=== PATIENT | female | born 1950 | race Caucasian/White ===

== ENCOUNTER → 2019-09-30 08:57 | Outpatient (CLI) | payer MEDICARE, SELFPAY ==
[2019-09-15 08:58] VITALS: BMI 26.6
[2019-09-30 09:52] VITALS: PULSE 80; PULSE 81; PULSE 89; PULSE 90; PULSE 93; PULSE 94; PULSE 95; PULSE 99; O2SAT 86; O2SAT 87; O2SAT 88; O2SAT 91; O2SAT 92; O2SAT 96
--- NOTE | 2019-09-30 09:57 | CPS ---
Patient arrived on own oxygen at 3lpm. Placed on room air prior to start of exercise test. Spo2 fell to 87% prior to beginning walk. Placed on 2LPM to start test. Oxygen subsequently increased throughout testing to maintain spo2 at/above 88%. (5LPM unavailable on our tanks so oxygen had to be increased from 4 to 6LPM at 4 minutes in to testing. ) Rest breaks taken for increased WOB, leg fatigue and occasional dizziness. Patient otherwise asymptomatic. D[facility] is [facility] in [place], [place]
--- NOTE | 2019-09-30 12:56 | WT_ITS ---
PSN 6 Minute Walk Test - 6 Minute Walk Test 6 Minute Walk Test: 6 Minute Walk Test PSN:6-Minute Walk Test Start: 09/30/19 09:51 Freq: Status: Active Protocol: [id number].6MINW Document 09/30/19 09:52 [facility] (Rec: 09/30/19 10:17 [facility] [id number]) 6 Minute Walk Test Date Performed 09/30/19 Time Performed 09:00 Height 5 ft 4 in Weight: 153 lb Weight in Pounds 153.[address]: Arturo Cohen Assistive device used: None Pre-test Oxygen Delivery Method Room Air Pulse Ox (%) 87 Pulse Rate (60-100 beats/min) 80 Dyspnea Samantha Scale (0-10) 1 1st minute Oxygen Flow Rate (L/min) (L/min) 2 Oxygen Delivery Method Nasal Cannula Pulse Ox (%) 86 Pulse Rate (60-100 beats/min) 89 Dyspnea Samantha Scale (0-10) 3 Number of Rests Taken 1 Reported Symptoms Cyanotic,Increased Work of Breathing,Dizziness 2nd minute Oxygen Flow Rate (L/min) (L/min) 3 Oxygen Delivery Method Nasal Cannula Pulse Ox (%) 87 Pulse Rate (60-100 beats/min) 94 Dyspnea Samantha Scale (0-10) 4 Number of Rests Taken 1 Reported Symptoms Increased Work of Breathing 3rd minute Oxygen Flow Rate (L/min) (L/min) 4 Oxygen Delivery Method Nasal Cannula Pulse Ox (%) 92 Pulse Rate (60-100 beats/min) 90 Dyspnea Samantha Scale (0-10) 4 Number of Rests Taken 0 Reported Symptoms Increased Work of Breathing 4th minute Oxygen Flow Rate (L/min) (L/min) 4 Oxygen Delivery Method Nasal Cannula Pulse Ox (%) 88 Pulse Rate (60-100 beats/min) 93 Dyspnea Samantha Scale (0-10) 5 Number of Rests Taken 1 Reported Symptoms Increased Work of Breathing 5th minute Oxygen Flow Rate (L/min) (L/min) 6 Oxygen Delivery Method Nasal Cannula Pulse Ox (%) 92 Pulse Rate (60-100 beats/min) 99 Dyspnea Samantha Scale (0-10) 3 Number of Rests Taken 0 Reported Symptoms Increased Work of Breathing 6th minute Oxygen Flow Rate (L/min) (L/min) 6 Oxygen Delivery Method Nasal Cannula Pulse Ox (%) 91 Pulse Rate (60-100 beats/min) 95 Dyspnea Samantha Scale (0-10) 3 Number of Rests Taken 0 Reported Symptoms Increased Work of Breathing Post-test Oxygen Flow Rate (L/min) (L/min) 3 Oxygen Delivery Method Nasal Cannula Pulse Ox (%) 96 Pulse Rate (60-100 beats/min) 81 Dyspnea Samantha Scale (0-10) 1 Full Laps Walked 7 Partial Lap, Number of Tiles Walked 24 Total Distance Walked (ft) 437 09/30/19 09:57 Cardiopulmonary Services by Nilda Hurtado Patient arrived on own oxygen at 3lpm. Placed on room air prior to start of exercise test. Spo2 fell to 87% prior to beginning walk. Placed on 2LPM to start test. Oxygen subsequently increased throughout testing to maintain spo2 at/above 88%. (5LPM unavailable on our tanks so oxygen had to be increased from 4 to 6LPM at 4 minutes in to testing. ) Rest breaks taken for increased WOB, leg fatigue and occasional dizziness. Patient otherwise asymptomatic. [facility] is [facility] in [place], [place] Initialized on 09/30/19 09:57 - END OF NOTE - Interpretation Interpretation: The patient ambulated 437 feet over the course of 6 minutes with rest breaks taken for shortness of breath. No assistive devices were utilized. Pretesting oxygen saturation on room air was noted to be 87%. 2 L of oxygen was applied prior to beginning the test. Throughout testing, the patient continued to desaturate, which required escalation in her supplemental oxygen flow rate to 6 L/min. - Recommendations Recommendations: 2 L/min of supplemental oxygen should be utilized at rest. 6 L/min of supplemental oxygen should be utilized with exertion.
== END ==
PROVIDERS: PCP Family Medicine; Referring Provider Internal Medicine Critical Care Medicine; Visit Provider Internal Medicine Critical Care Medicine
DX: J44.9 Chronic obstructive pulmonary disease, unspecified (principal)
CPT/HCPCS: 94618

== ENCOUNTER → 2019-10-06 09:51 | Outpatient (CLI) | payer MEDICARE, SELFPAY ==
[2019-09-15 08:58] VITALS: BMI 26.6
--- NOTE | 2019-10-06 15:05 | PFTCOMP ---
COMPLETE PULMONARY FUNCTION TEST INTERPRETATION Brief HPI: Patient is a 69 year old female, currently under the care of myself, who presents to [facility] for complete pulmonary function tests secondary to diagnosis of COPD. Respiratory therapist reports good effort and reproducible results. Interpretation: Forced expiration spirometry shows a very severe large airways obstructive ventilatory defect with an FEV1 of 25% predicted. There is a significant bronchodilator response in FVC by strict ATS criteria. Spirograms are of good quality and plateau slowly, indicating slowly emptying areas of the lungs. The respiratory flow volume loop shows decreased expiratory flow rates at all lung volumes consistent with airway obstruction. Lung volumes by body plethysmography show a decreased total lung capacity at 3.49 L, 72% predicted. FRC and RV are elevated out of proportion. Lung volume measurements are consistent with air-trapping. Diffusion capacity by carbon monoxide is decreased at 28% predicted. The airway resistance is elevated. No previous pulmonary function tests were available for review. Impression: Partially reversible very severe mixed ventilatory defect with a symmetric reduction diffusing capacity
== END ==
PROVIDERS: PCP Family Medicine; Referring Provider Internal Medicine Critical Care Medicine; Visit Provider Internal Medicine Critical Care Medicine
DX: J44.9 Chronic obstructive pulmonary disease, unspecified (principal)
CPT/HCPCS: 94060; 94726; 94729

== ENCOUNTER → 2019-12-19 15:16 | Outpatient (CLI) | payer MEDICARE, SELFPAY ==
[2019-12-19 13:13] VITALS: BMI 26.3
[2019-12-19 16:02] LABS: Microalbumin,Random Urine 14.4 mg/L (NO RANGE EST.); Microalbumin:Creatinine Ratio 45.9 mg/g CRE (<30 mg/g CRE)
[2019-12-19 16:15] LABS: ALB/GLOB Ratio 1.2 RATIO (0.9-2.4); AST(SGOT) 20 U/L (15-37); Alanine Aminotransfer ALT/SGPT 35 U/L (13-56); Albumin, Serum 4.1 g/dL (3.2-5.0); Alkaline Phosphatase 64 U/L (45-117); Anion Gap 6 (5-15); BUN 17 mg/dL (7-18); BUN/Creat Ratio 20.3 RATIO (10-20); Calcium,Total 9.5 mg/dL (8.5-10.1); Chloride 98 mmol/L (98-107); Cholesterol 189 mg/dL (200); Creatinine, Serum 0.84 mg/dL (0.55-1.02); EST Glomerular Filtration Rate 72 mL/min (>60); Est Glom Filt Rate - Afr Amer 87 mL/min (>60); Globulin 3.5 g/dL (2.2-4.2); Glucose 268 mg/dL (74-106); High Density Lipoprotein 43 mg/dL; Potassium 4.4 mmol/L (3.5-5.1); Protein, Total 7.6 g/dL (6.4-8.2); Sodium Level 138 mmol/L (136-145); Thyroid Stim Hormone (TSH) 3.33 uIU/mL (0.358-3.74); Triglycerides 270 mg/dL; Very Low Density Lipoprotein 54 mg/dL (5-40)
== END ==
PROVIDERS: PCP Family Medicine; Referring Provider Internal Medicine Endocrinology, Diabetes & Metabolism; Visit Provider Internal Medicine Endocrinology, Diabetes & Metabolism
DX: E11.9 Type 2 diabetes mellitus without complications (principal); E78.2 Mixed hyperlipidemia
CPT/HCPCS: 80053; 80061; 82043; 82570; 84443

== ENCOUNTER 2020-01-10 14:16 | Inpatient (IN) | payer MEDICARE, SELFPAY ==
[2020-01-10] VITALS (9 sets, daily range): BP systolic 117–160; BP diastolic 63–114; PULSE 85–96; RESP 19–24; TEMP 36.8–37.2; O2SAT 94–98; BMI 26.2; BMI 26.8
--- NOTE | 2020-01-10 15:06 | ED.DCSUM_ITS ---
History of Present Illness Chief Complaint: Shortness of Breath Informant: Patient Onset: Weeks Context: Sudden Onset Timing: Continuous Quality: Shortness of breath, wheezing, dyspnea on exertion Location: Not applicable Current Severity: Mild Maximum Severity: Moderate Worsened by: Minimal activity, walking Relieved by: Nothing Associated Symptoms: Cough that is productive green-colored sputum Narrative: Patient is an elderly woman with history of COPD who is oxygen dependent. She states if she is at rest requirement is 3 L by nasal cannula. If she walks requirement is 5 L by nasal cannula. She reports increased shortness of breath over the past week. Cough started approximate week ago and now is productive. She states a month ago she was able to walk from room to room. She states now she cannot walk room to room. She denies fever, chills night sweats. She denies headache, visual, ocular auditory symptoms. She denies rhinorrhea, congestion, postnasal drainage. She denies sore throat, dysphasia, dysphonia. She denies change in smell or taste. She denies chest pain. She denies nausea, vomiting or diarrhea. She denies dysuria, frequency, urgency or hematuria. She denies leg pain, swelling discoloration. She denies black or maroon stool. Prior similar symptoms: Yes Recent Illness/Hospitalization: No - Past Medical History (1) COPD, group C, by GOLD 2017 classification Status: Acute (2) Coronary atherosclerosis Status: Acute (3) H/O bronchitis Status: Acute (4) Insomnia, unspecified Status: Acute (5) Type 2 diabetes mellitus without complications Status: Acute (6) Benign hypertension Status: Chronic Past Medical History - Allergies and Home Meds Allergies/Adverse Reactions: Allergies niacin Allergy (Verified 01/10/20 14:16) hives, rash Primary Care Physician: Ron Garland MD [Primary Care Provider] - Surgical History: hysterectomy Lives: Alone Smoking Status: Former smoker Alcohol: None Drugs: None Review of Systems General: Denies: Chills, Fever, Sweats Eyes: Reports: Blurred Vision - bilaterally. Denies: Visual changes - bilaterally, Diplopia ENT: Denies: Bilateral ear pain, Rhinorrhea, Sore throat Cardiovascular: Denies: Chest pain, Palpitations Respiratory: Reports: Dyspnea, Cough, Sputum, Dyspnea on exertion. Denies: Orthopnea, Paroxysmal nocturnal dyspnea Gastrointestinal: Denies: Abdominal pain, Nausea, Vomiting, Diarrhea, Melena, Hematochezia Genitourinary: Denies: Dysuria, Hematuria, Frequency Musculoskeletal: Denies: Myalgias, Arthralgias, Back pain, Extremity Pain Skin: Denies: Rash, Wounds Neurological: Denies: Headache, Weakness, Numbness Endocrine: Reports: Polyuria. Denies: Polydipsia Hematologic: Denies: Easy bruising, Easy bleeding Physical Exam Vital Signs/Narrative: Vital Signs Temp Pulse Resp BP Pulse Ox 01/10/20 15:00 92 19 H 160/63 H 97 01/10/20 14:17 98.5 F 85 24 H 156/71 H 98 Inital Vital Signs reviewed: Yes General: Well nourished, Well developed, Obese, Acute Distress Head: Normocephalic, Atraumatic Eyes: Perrl, EOMI. Negative for: Pale conjunctiva, Scleral icterus ENT: No rhinorrhea, TM's clear. Negative for: Nasal congestion, Sinus tenderness Neck: Supple, Nontender, No lymphadenopathy, No JVD Cardiovascular: Regular rate, Regular rhythm, No murmurs, Normal S1, Normal S2 Respiratory: Chest nontender, Wheezing - High-pitched wheezing noted bilaterally with increased expiratory phase., Decreased Air Movement. Negative for: No distress, CTA bilaterally Abdomen: Soft, Nontender, Nondistended, Normal bowel sounds Rectal: Deferred Back: Nontender, Normal Inspection. Negative for: CVA tenderness Extremities: Nontender, Edema Skin: Normal color, No rash, No Trauma. Negative for: Cyanosis, Diaphoresis, Jaundice Neurological: Alert, Oriented x3, Cranial nerves II-XII grossly intact, Normal Strength, Normal Sensation. Negative for: Normal Gait - Was not tested because of respiratory distress. She states she has problems with balance, which is chronic. Psychological: Normal affect, Normal Mood Diagnostic/Tx/Re-eval Chest X-Ray - ED: 1 View, Read by ED Physician, Normal, Heart, Mediastinum, Bony Structures, No Acute Disease, Chronic Changes, - - Blebs noted and scarring noted. Impressions Chest X-Ray 01/10/20 15:25 IMPRESSION: Hyperinflation. Mild degree of increased markings at the lung bases suggestive of linear atelectasis and/or scarring. Electronically Signed: Travon Curry, at 15:44 EDT , Service support , Chest CTA 01/10/20 16:08 IMPRESSION: No evidence of pulmonary embolus. No evidence of thoracic aortic aneurysm or dissection. Mild emphysema. No pulmonary infiltrates or pleural effusions. Coronary artery disease. Enlarged, fatty liver. Electronically Signed: Chuy Madrid, at 16:56 EDT Tel , Service support , 01/10/20 15:25 Chest 1 View (Portable) [RAD] Stat 01/10/20 16:08 CTA Chest W/WO Contrast [CT] Stat Laboratory Results 01/10/20 01/10/20 01/10/20 15:15 15:15 15:15 WBC 7.3 RBC 4.18 L Hgb 12.3 Hct 41.1 MCV 98.3 MCH 29.4 MCHC 29.9 L RDW Std Deviation 44.0 H RDW Coeff of Netta 12.2 Plt Count 170 MPV 10.6 Immature Gran % (Auto) 0.300 Neut % (Auto) 54.5 Lymph % (Auto) 20.7 Howell % (Auto) 7.6 Eos % (Auto) 15.9 H Baso % (Auto) 1.0 Absolute Neuts (auto) 4.0 Absolute Lymphs (auto) 1.50 Nucleated RBC % 0 Sodium 142 Potassium 3.9 Chloride 98 Carbon Dioxide 38.0 H Anion Gap 6 BUN 17 Creatinine 0.88 Estim Creat Clear Calc 52.84 Est GFR (MDRD) Af Amer 83 Est GFR (MDRD) Non-Af 68 BUN/Creatinine Ratio 19.4 Glucose 152 H Lactic Acid 5.0 H* Calcium 9.3 Total Bilirubin 0.20 AST 23 ALT 30 Alkaline Phosphatase 57 Total Protein 7.3 Albumin 3.8 Globulin 3.5 Albumin/Globulin Ratio 1.1 Patient's lactic acidosis may be secondary diabetes mellitus and/or COPD and or combination of the two. Since patient is still using accessory muscles and wheezing hospitalist has been called for admission for COPD exacerbation and lactic acidosis. - EKG Initial EKG Interpretation: Sinus Rhythm - was performed at 1728. EKG reveals a sinus rhythm with a ventricular rate of 84. [place] interval is 136 ms. QRS duration 88 ms. QT duration 480 ms. [place] is normal. Decreased anterior force. EKG is otherwise unremarkable. - Medical Decision Making Differential diagnosis includes exacerbation of COPD/chronic bronchitis, viral infection including COVID, community-acquired pneumonia, with history of coronary disease one needs entertain possibility of congestive heart failure. Pulmonary embolus is in differential however she denies chest pain and has a productive cough. EKG, chest x-ray and appropriate blood work was obtained. Because patient has respiratory distress worsening hypoxia with productive cough COVID test was ordered. COVID precautions were initiated. I was informed at 1610 that lactate is 5. With a normal chest x-ray respiratory distress, hypoxia prior history of DVT patient has a high pretest probability for pulmonary embolus. Will obtain CTA to rule out PE. The differential still includes COVID impaction. CTA was reviewed by me at 1652. There is no evidence of pulmonary embolus or infiltrate. Awaiting formal read. Since there is no source of infection patient was not treated with 30 cc/kg bolus. Suspect patient's lactic acidosis is secondary to exacerbation of COPD. In spite of multiple aerosol treatments, Solu-Medrol she remains tachypneic with use of accessory muscles. Once CTA has been read by radiologist will contact hospitalist for admission. - Critical Care Time Critical care time (excluding procedures): 30-74 minutes - Total time 31 minutes: To obtain detailed history, speak with referring practitioner, performing history, documentation of H&P, interpretation of laboratory studies and imaging, repeat evaluation after treatment. ED Disposition - Plan for ED Patient: Disposition: Acute Care Hospital [facility] Diagnosis: Acute exacerbation of COPD with asthma, Lactic acidosis, Acute and chronic respiratory failure with hypoxia, History of coronary artery disease Referrals: Ron Garland MD [Primary Care Provider] -
--- NOTE | 2020-01-10 15:25 | RAD_ITS ---
STUDY: X-RAY CHEST REASON FOR EXAM: Female, 69 years old. Shortness of breath x 1 week, Hx COPD TECHNIQUE: Single AP portable view of the chest. COMPARISON: None. FINDINGS: EKG electrodes are seen. Minimal increased markings at the lung bases suggestive of mild degree of the atelectasis and/or linear scarring. Hyperinflation. There is no demonstrated pleural abnormality. Normal size heart. Normal mediastinum and gretchen. Normal visualized pulmonary arteries. Normal visualized aortic arch and descending thoracic aorta. Normal visualized thoracic spine. Normal visualized ribs, clavicles, and shoulders. There is no demonstrated abnormality of the visualized soft tissue structures of the upper abdomen. RAD/Chest 1 View (Portable) IMPRESSION: Hyperinflation. Mild degree of increased markings at the lung bases suggestive of linear atelectasis and/or scarring. Electronically Signed: Travon Curry, at 15:44 EDT , Service support ,
[2020-01-10 15:34] LABS: Basophil# 0.07 X10^3/uL; Eosinophil# 1.15 X10^3/uL; Eosinophils% 15.9 % (0-5); Hematocrit 41.1 % (37-47); Hemoglobin 12.3 g/dL (12.0-15.0); Lymphocyte % 20.7 % (19-41); Mean Corp Hgb Conc 29.9 g/dL (32-36); Mean Corpuscular Hgb 29.4 pg (27.0-32.0); Mean Corpuscular Volume 98.3 fL (81-99); Mean Platelet Vol. 10.6 fl (6.2-12.0); Monocyte# 0.55 X10^3/uL; Monocyte% 7.6 % (0-10); NRBC Flagged by Analyzer 0 % (0-5); Neutrophil # 3.96 X10^3/uL (2.7-7.7); Neutrophil % 54.5 % (47-70); Platelet Count 170 K/mm3 (150-450); RBC Distribution Width CV 12.2 % (11.6-14.6); Red Blood Count 4.18 M/mm3 (4.2-5.4); White Blood Count 7.3 K/mm3 (4.4-11.0)
[2020-01-10 15:59] LABS: ALB/GLOB Ratio 1.1 RATIO (0.9-2.4); AST(SGOT) 23 U/L (15-37); Alanine Aminotransfer ALT/SGPT 30 U/L (13-56); Albumin, Serum 3.8 g/dL (3.2-5.0); Alkaline Phosphatase 57 U/L (45-117); Anion Gap 6 (5-15); BUN 17 mg/dL (7-18); BUN/Creat Ratio 19.4 RATIO (10-20); Calcium,Total 9.3 mg/dL (8.5-10.1); Chloride 98 mmol/L (98-107); Creatinine, Serum 0.88 mg/dL (0.55-1.02); EST Glomerular Filtration Rate 68 mL/min (>60); Est Glom Filt Rate - Afr Amer 83 mL/min (>60); Estimated Creatinine Clearance 52.84 ml/min; Globulin 3.5 g/dL (2.2-4.2); Glucose 152 mg/dL (74-106); Potassium 3.9 mmol/L (3.5-5.1); Protein, Total 7.3 g/dL (6.4-8.2); Sodium Level 142 mmol/L (136-145)
--- NOTE | 2020-01-10 16:08 | CT_ITS ---
STUDY: CTA CHEST REASON FOR EXAM: Female, 69 years old. Increased SOB x 1 week, hypoxia with movement, home O2, COPD, coronary stents, hypertension, diabetes. RADIATION DOSAGE (If Supplied By Facility): CTDIvol = ( 10.95 ) mGy, DLP = ( 445.68 ) mGycm TECHNIQUE: The examination was performed with the intravenous administration of 100mL Isovue 300. Post-processing of the angiographic images was performed, with multiplanar reformation and 3D reconstruction. Individualized dose optimization techniques were used for this CT. COMPARISON: None. FINDINGS: There is no evidence of pulmonary embolus. There is no evidence of thoracic aortic aneurysm or dissection. There are mild emphysematous changes noted in the lungs. There are no pulmonary infiltrates or pleural effusions. There is no pneumothorax. The heart is normal in size. There are coronary artery calcifications noted. There is no thoracic lymphadenopathy. Images through the upper abdomen demonstrate an enlarged, fatty liver. There are no destructive osseous lesions. CT/CTA Chest W/WO Contrast IMPRESSION: No evidence of pulmonary embolus. No evidence of thoracic aortic aneurysm or dissection. Mild emphysema. No pulmonary infiltrates or pleural effusions. Coronary artery disease. Enlarged, fatty liver. Electronically Signed: Chuy Madrid, at 16:56 EDT Tel , Service support ,
--- NOTE | 2020-01-10 16:36 | ED.RN ---
dr cardoza consulted on sepsis alert. states no identifiable source at this time. feels it is not an infectious process. no further orders at this time. bianca jack rn [id number]
--- NOTE | 2020-01-10 17:18 | EKG12_ITS ---
Test Reason : Blood Pressure : / mmHG Vent. Rate : 084 BPM Atrial Rate : 084 BPM P-R Int : 136 ms QRS Dur : 088 ms QT Int : 480 ms P-R-T Axes : 078 095 058 degrees QTc Int : 567 ms Normal sinus rhythm Low voltage QRS Septal infarct , age undetermined Abnormal ECG Confirmed by EVERETTE ARRIAZA ([id number]), school photograph editor GUI VALDES ([id number]) on 01/12/2020 2:22:23 PM Referred By: ANTONI Confirmed By:EVERETTE ARRIAZA
--- NOTE | 2020-01-10 18:22 | HP.PCM_ITS ---
History of Present Illness Date of Admission: 01/10/20 Chief Complaint: SOB The patient is a 69 year old F with a PMH as below who presents with shortness of breath that started about a week ago. She does have COPD and she was at the managed care provider office today for an acute visit and her oxygen had to be titrated up from her baseline of 3 L to 5 L while at rest. She was transferred to the ER for evaluation and to decide on where to admit her. CTA of the chest was unremarkable, preliminary respiratory panel is also unremarkable and a COVID test is pending though she has no known exposure at this time. She states that she has not really increased her oxygen even with ambulation because she does not ambulate all that much. She denies any chest pain, but states that she has had lightheadedness. She also denies any fevers, chills or alterations in her sense of smell and taste. Chest x-ray demonstrates hyperinflation and signs of COPD. Past Medical History Past Medical History (Chronic Problems): Chronic Problems (Last Reviewed 01/10/20 @ 13:29 by Suzi Garber NP-Francis) Acute exacerbation of COPD with asthma (Chronic) Acute and chronic respiratory failure with hypoxia (Chronic) Diabetes (Chronic) Microalbuminuria due to type 2 diabetes mellitus (Chronic) Chronic respiratory failure with hypoxia (Chronic) COPD (chronic obstructive pulmonary disease) (Chronic) Benign hypertension (Chronic) Hyperlipidemia, unspecified (Chronic) Medical History: Medical History (Last Reviewed 01/10/20 @ 13:29 by Suzi Garebr NP-C) Pneumonia (Acute) J18.9 COPD (chronic obstructive pulmonary disease) (Chronic) J44.9 Bronchitis (Acute) J40 Allergies niacin Allergy (Verified 01/10/20 14:16) hives, rash Home Medications: Ambulatory Orders Medication Instructions Recorded aspirin 325 mg tablet,delayed 325 mg PO DAILY 09/14/19 release atorvastatin 20 mg tablet 20 mg PO QHS 09/14/19 estradiol 0.5 mg tablet 0.5 mg PO DAILY 09/14/19 furosemide 40 mg tablet 40 mg PO DAILY 09/14/19 ipratropium 0.5 mg-albuterol 3 mg 3 ml INHALATION Q6H PRN 09/14/19 (2.5 mg base)/3 mL nebulization soln melatonin 10 mg tablet,extended 10 mg PO QHS tab 09/14/19 release metoprolol succinate 50 mg 50 mg PO DAILY 09/14/19 tablet,extended release 24 hr pioglitazone 15 mg tablet 15 mg PO DAILY 09/14/19 Budesonide [Pulmicort] 0.25 mg IH BID 01/10/20 Glipizide/Metformin HCl 2 tab PO BID 01/10/20 [Glipizide-Metformin 2.5-500 mg] Insulin Glargine [Lantus SoloStar 30 unit SQ DAILY 01/10/20 Pen] Surgical History: Surgical History (Last Reviewed 01/10/20 @ 13:29 by Suzi Garber NP-C) History of cataract surgery (Resolved) Z98.49 S/P complete hysterectomy (Resolved) Z90.710 H/O removal of cyst (Resolved) Z98.890 History of colonoscopy (Resolved) Z98.890 Surgical History: cataract, hysterectomy Lives: Alone Smoking Status: Former smoker Tobacco Use: Cigarettes Alcohol: None Drugs: None - *Family History Maternal Family History: Family History (Last Reviewed 01/10/20 @ 13:29 by Suzi Garber NP-C) Father Heart disease Mother Cancer Sister CVA (cerebral vascular accident) Cancer Review of Systems Constitutional: Denies: Chills, Fever, Weight Change HEENT: Denies: Head Aches, Sinus Congestion, Sinus Drainage Cardiovascular: Reports: Light Headedness. Denies: Chest Pain, Chest Pressure, Palpitations Respiratory: Reports: Cough, Shortness of Breath, Shortness of breath upon exertion. Denies: Shortness of breath at rest, Sputum production Gastrointestinal: Denies: Abdominal Pain, Nausea, Vomiting Genitourinary: Denies: Dysuria Musculoskeletal: Denies: Joint Pain, Joint Tenderness Skin: Denies: Rash, Wounds Neurological: Denies: Numbness, Tingling, Focal weakness Psychiatric: Denies: Anxiety, Depression Hematologic/ Lymphatic: Denies: Easy Bruising, Easy Bleeding VTE Information - Inpt Only VTE Present on Admission: No Patient Problems: Active and Suspected Problems (Last Reviewed 01/10/20 @ 13:29 by Suzi Garber NP-C) Lactic acidosis (Acute) History of coronary artery disease (Acute) - Physical Exam Vitals/I&O's: Vital Signs Temp Pulse Resp BP Pulse Ox 98.2 F 90 23 H 117/65 95 01/10/20 17:56 01/10/20 17:56 01/10/20 17:56 01/10/20 17:56 01/10/20 17:56 Oxygen Flow Rate (L/min) 3 Oxygen Delivery Method Room Air Weight: 153 lb Body Mass Index (BMI) 26.2 General: Alert, Oriented x3, Cooperative, No apparent distress HEENT: Atraumatic, PERRLA, EOMI, Normocephalic Oral: Moist Mucosa Neck: Supple, No JVD Lungs: No rhonchi, No rales, Diminished, Wheezes - Mild, - - Very poor air movement Cardiovascular: Regular rate, Regular Rhythm, Normal S1, Normal S2, No murmurs Abdomen: Soft, Non Tender, Non-Distended, No Hepato-splenomegaly Extremities: No edema, Capillary Refill Less than 3 Seconds Skin: No rashes, No breakdown Neurological: Neuro grossly intact, Sensory exam intact to light touch and pain Psych/Mental Status: Normal Affect, Appropriate Microbiology Past 72 Hours 01/10/20 15:18 Mucosa - Nose Respiratory Panel (PCR) - Preliminary Laboratory Results 01/10/20 15:15: WBC 7.3, RBC 4.18 L, Hgb 12.3, Hct 41.1, MCV 98.3, MCH 29.4, MCHC 29.9 L, RDW Std Deviation 44.0 H, RDW Coeff of Netta 12.2, Plt Count 170, MPV 10.6, Immature Gran % (Auto) 0.300, Neut % (Auto) 54.5, Lymph % (Auto) 20.7, [place] % (Auto) 7.6, Eos % (Auto) 15.9 H, Baso % (Auto) 1.0, Absolute Neuts (auto) 4.0, Absolute Lymphs (auto) 1.50, Nucleated RBC % 0 01/10/20 15:15: Sodium 142, Potassium 3.9, Chloride 98, Carbon Dioxide 38.0 H, Anion Gap 6, BUN 17, Creatinine 0.88, Estim Creat Clear Calc 52.84, Est GFR (MDRD) Af Amer 83, Est GFR (MDRD) Non-Af 68, BUN/Creatinine Ratio 19.4, Glucose 152 H, Calcium 9.3, Total Bilirubin 0.20, AST 23, ALT 30, Alkaline Phosphatase 57, Total Protein 7.3, Albumin 3.8, Globulin 3.5, Albumin/Globulin Ratio 1.1 01/10/20 15:15: Lactic Acid 5.0 H* Assessment/Plan All Active Problems (Last Reviewed 01/10/20 @ 13:29 by Suzi Garber, PHIL-C) Lactic acidosis (Acute) History of coronary artery disease (Acute) History of cataract surgery (Resolved) S/P complete hysterectomy (Resolved) H/O removal of cyst (Resolved) Pneumonia (Acute) Bronchitis (Acute) History of colonoscopy (Resolved) H/O urinary tract infection (Acute) Olecranon bursitis of right elbow (Acute) Knee pain (Acute) H/O: pneumonia (Acute) H/O bronchitis (Acute) H/O estrogen therapy (Acute) Rotator cuff impingement syndrome (Acute) COPD, group C, by GOLD 2017 classification (Acute) Coronary atherosclerosis (Acute) Insomnia, unspecified (Acute) Type 2 diabetes mellitus without complications (Acute) 1. Acute COPD exacerbation with acute respiratory insufficiency/lactic acidosis -She is struggling to breathe and her managed care provider office today and had to have her oxygen increased to 5 L -She is received breathing treatments in the ER I believe and at the office -we will continue with duo nebs, as well as Solu-Medrol. We will continue with her budesonide as well -There is no sign of infection to consider there her septic, will repeat lactate but will hold both her Lasix and any IV fluids at this time, her lactic acidosis is likely related to any hypoxia she has had over the last week 2. HTN/HLD -Pressures are stable currently -Continue with her Lipitor, and metoprolol -Can restart her Lasix tomorrow if her lactic acidosis improves 3. DM 2 -She follows with endocrinology as an outpatient -We will hold her glipizide, Actos and metformin but continue with her Lantus -Also place her on sliding scale insulin given the fact that she will be on steroids DVT: Lovenox Inpatient E&M: [id number] Init Hosp L2
[2020-01-10 19:30] LABS: Reflex Lactate? Y
[2020-01-10 20:53] LABS: Lactic Acid 2.7 mmol/L (0.4-1.9)
[2020-01-10] MEDS: Atorvastatin Calcium 20 MG Tablet PO (21:05)
[2020-01-10] MEDS: Estradiol 0.5 MG Tablet PO (21:05)
[2020-01-10 21:11] LABS: Bedside Glucose 230 mg/dL (70-110)
[2020-01-10] MEDS: Insulin Lispro 100 UNIT/ML INSULN.PEN SC (21:11)
[2020-01-10] MEDS: 0.9% Saline Lock 10 ML Syringe IV (21:11)
[2020-01-10] MEDS: Ipratropium/Albuterol Sulfate 3 ML AMPUL.NEB INHALATION (23:55)
[2020-01-11] VITALS (15 sets, daily range): BP systolic 125–155; BP diastolic 57–79; PULSE 76–99; RESP 16–20; TEMP 36.1–37; O2SAT 94–98
[2020-01-11] MEDS: 0.9% Saline Lock 10 ML Syringe IV ×2 (05:22→15:12)
[2020-01-11 06:30] LABS: Absolute Neutrophil Count 4.7 X10^3/uL (2.0-7.7); Basophil# 0.04 X10^3/uL; Basophil% 0.7 % (0-1); Eosinophil# 0.04 X10^3/uL; Eosinophils% 0.7 % (0-5); Hematocrit 41.8 % (37-47); Hemoglobin 12.5 g/dL (12.0-15.0); Lymphocyte % 9.2 % (19-41); Mean Corp Hgb Conc 29.9 g/dL (32-36); Mean Corpuscular Hgb 29.3 pg (27.0-32.0); Mean Corpuscular Volume 98.1 fL (81-99); Mean Platelet Vol. 10.2 fl (6.2-12.0); Monocyte# 0.15 X10^3/uL; Monocyte% 2.8 % (0-10); NRBC Flagged by Analyzer 0 % (0-5); Neutrophil # 4.69 X10^3/uL (2.7-7.7); POSITIVE DIFFERENTIAL YES; Platelet Count 161 K/mm3 (150-450); RBC Distribution Width CV 12.2 % (11.6-14.6); RBC Distribution Width SD 43.8 fl (35.1-43.9); Red Blood Count 4.26 M/mm3 (4.2-5.4); White Blood Count 5.5 K/mm3 (4.4-11.0)
[2020-01-11] MEDS: Insulin Lispro 100 UNIT/ML INSULN.PEN SC ×4 (06:41→21:56)
[2020-01-11 06:42] LABS: Differential Indicated SCAN CRITERIA MET
[2020-01-11 06:50] LABS: Bedside Glucose 246 mg/dL (70-110)
[2020-01-11] MEDS: Ipratropium/Albuterol Sulfate 3 ML AMPUL.NEB INHALATION ×4 (06:57→18:50)
[2020-01-11 06:59] LABS: Anion Gap 2 (5-15); BUN 17 mg/dL (7-18); BUN/Creat Ratio 24.4 RATIO (10-20); Calcium,Total 9.1 mg/dL (8.5-10.1); Chloride 99 mmol/L (98-107); EST Glomerular Filtration Rate 89 mL/min (>60); Est Glom Filt Rate - Afr Amer 107 mL/min (>60); Glucose 275 mg/dL (74-106); Potassium 4.6 mmol/L (3.5-5.1); Sodium Level 141 mmol/L (136-145)
[2020-01-11 07:08] LABS: Anisocytosis 1+; Hypochromasia 1+; Platelet Estimate ADEQUATE (ADEQ)
[2020-01-11] MEDS: Aspirin E.C. 325 MG Tablet PO (08:30)
[2020-01-11] MEDS: Enoxaparin 40 MG/0.4 ML Syringe SC (09:42)
--- NOTE | 2020-01-11 10:30 | CASEMGMT ---
MARIE GROVES Face to Face with patient for initial transition planning/care coordination assessment. RN CM introduced self and role at [facility]. Patient lying in bed, alert and oriented. Patient willing to participate in assessment and is able to answer all questions appropriately. Care providers, pharmacy, and demographics verified. Patient wishes to discharge home, denies need for home health at this time. Patient states she has no further needs or concerns at this time. CM to follow for discharge planning needs that may arise. PCP: Ron Garland Specialists: , Endocrinology; Noel, pulmonology Preferred Pharmacy: [facility] Insurance: [employer] PPO Prescription Benefit: yes Living Will/HPOA: none LNOK: , daughter Living Arrangements: Patient lives with in 3 story home with bed and bath on first floor with 2 steps to enter the home. Patient states she is independent with toileting and dressing, daughter sometimes helps with bathing. Transportation: or daughter DME/HHC: Patient states she has cane, shower chair, grab bars, nebulizer, and oxygen 3-5 lpm through [employer] at home with portable tanks and concentrator. Monitor for need for walker at home. Patient denies previous HHC. Disposition Plan: Patient to discharge home with family support and follow-up plans in place. Margo WARNER, RN, CM
[2020-01-11 11:15] LABS: Bedside Glucose 271 mg/dL (70-110)
--- NOTE | 2020-01-11 11:27 | PCM.PN.HOSP ---
Patient Problems: Active and Suspected Problems (Last Reviewed 01/10/20 @ 13:29 by CLIFFORD Velazquez) Lactic acidosis (Acute) History of coronary artery disease (Acute) Subjective: She says that she is feeling better since she came in, breathing little bit easier. No issues overnight Vitals/I&O's: Vital Signs Temp Pulse Resp BP Pulse Ox 98.2 F 99 16 135/76 H 96 01/11/20 11:05 01/11/20 11:05 01/11/20 11:05 01/11/20 11:05 01/11/20 11:05 Oxygen Flow Rate (L/min) 3 Oxygen Delivery Method Nasal Cannula Weight: 156 lb 4.924 oz Body Mass Index (BMI) 26.8 Intake and Output for Last 24 Hours 01/09/20 01/10/20 01/11/20 23:59 23:59 23:59 Intake Total 100 / 100 150 / 150 Output Total 300 / 300 225 / 225 Balance -200 / -200 -75 / -75 General: Alert, Oriented x3, Cooperative, No apparent distress HEENT: Atraumatic, PERRLA, EOMI, Normocephalic Oral: Moist Mucosa Neck: Supple, No JVD Lungs: No rhonchi, No rales, Diminished, Wheezes - Mild, - - Very poor air movement Cardiovascular: Regular rate, Regular Rhythm, Normal S1, Normal S2, No murmurs Abdomen: Soft, Non Tender, Non-Distended, No Hepato-splenomegaly Extremities: No edema, Capillary Refill Less than 3 Seconds Skin: No rashes, No breakdown Neurological: Neuro grossly intact, Sensory exam intact to light touch and pain Psych/Mental Status: Normal Affect, Appropriate Microbiology Past 72 Hours 01/10/20 15:18 Mucosa - Nose Respiratory Panel (PCR) - Final 01/10/20 15:13 Mucosa - Nasopharyngeal Coronavirus COVID-19 PCR - Final Laboratory Results 01/10/20 15:15: WBC 7.3, RBC 4.18 L, Hgb 12.3, Hct 41.1, MCV 98.3, MCH 29.4, MCHC 29.9 L, RDW Std Deviation 44.0 H, RDW Coeff of Netta 12.2, Plt Count 170, MPV 10.6, Immature Gran % (Auto) 0.300, Neut % (Auto) 54.5, Lymph % (Auto) 20.7, Victoria % (Auto) 7.6, Eos % (Auto) 15.9 H, Baso % (Auto) 1.0, Absolute Neuts (auto) 4.0, Absolute Lymphs (auto) 1.50, Nucleated RBC % 0 01/10/20 15:15: Sodium 142, Potassium 3.9, Chloride 98, Carbon Dioxide 38.0 H, Anion Gap 6, BUN 17, Creatinine 0.88, Estim Creat Clear Calc 52.84, Est GFR (MDRD) Af Amer 83, Est GFR (MDRD) Non-Af 68, BUN/Creatinine Ratio 19.4, Glucose 152 H, Calcium 9.3, Total Bilirubin 0.20, AST 23, ALT 30, Alkaline Phosphatase 57, Total Protein 7.3, Albumin 3.8, Globulin 3.5, Albumin/Globulin Ratio 1.1 01/10/20 15:15: Lactic Acid 5.0 H* 01/10/20 19:58: Lactic Acid 2.7 H* 01/10/20 21:04: POC Glucose 230 H 01/11/20 06:20: WBC 5.5, RBC 4.26, Hgb 12.5, Hct 41.8, MCV 98.1, MCH 29.3, MCHC 29.9 L, RDW Std Deviation 43.8, RDW Coeff of Netta 12.2, Plt Count 161, MPV 10.2, Immature Gran % (Auto) 0.600, Neut % (Auto) 86.0 H, Lymph % (Auto) 9.2 L, Victoria % (Auto) 2.8, Eos % (Auto) 0.7, Baso % (Auto) 0.7, Absolute Neuts (auto) 4.7, Absolute Lymphs (auto) 0.50 L, Nucleated RBC % 0, Differential Comment COMMENT, Platelet Estimate ADEQUATE, Hypochromasia 1+, Anisocytosis 1+ 01/11/20 06:20: Sodium 141, Potassium 4.6, Chloride 99, Carbon Dioxide 40.0 H, Anion Gap 2 L, BUN 17, Creatinine 0.70, Estim Creat Clear Calc 46.50, Est GFR (MDRD) Af Amer 107, Est GFR (MDRD) Non-Af 89, BUN/Creatinine Ratio 24.4 H, Glucose 275 H, Calcium 9.1 01/11/20 06:40: POC Glucose 246 H 01/11/20 10:55: POC Glucose 271 H Current Medications Acetaminophen (Tylenol) 650 mg PO Q6H PRN PRN PRN Reason: Pain Score 1-10/Temp > 100.7 F Albuterol/Ipratropium (Duoneb) 3 ml INHALATION Q4HWA.RT [facility] Last Admin: 01/11/20 11:15 Dose: 3 ml Documented by: Aspirin (Ecotrin) 325 mg PO DAILY@0800 [facility] Last Admin: 01/11/20 08:30 Dose: 325 mg Documented by: Atorvastatin Calcium (Lipitor) 20 mg PO QHS [facility] Last Admin: 01/10/20 21:05 Dose: 20 mg Documented by: Dextrose (D50w Syringe) 0 gm IV X1 PRN; Protocol PRN Reason: Hypoglycemia Enoxaparin Sodium (Lovenox) 40 mg SC DAILY [facility] Last Admin: 01/11/20 09:42 Dose: 40 mg Documented by: Estradiol (Estradiol) 0.5 mg PO QHS [facility] [place] Last Admin: 01/10/20 21:05 Dose: 0.5 mg Documented by: Glucagon () 1 mg IM .X1 PRN PRN Reason: Hypoglycemia Sodium Chloride () 250 mls @ 15 mls/hr IV .[id number] PRN PRN Reason: Saline Flush Sodium Chloride () 250 mls @ 15 mls/hr IV .[id number] PRN PRN Reason: Additional IVPB Infusion Insulin Glargine (Lantus (Bkc)) 30 units SC DAILY [facility] Last Admin: 01/11/20 10:57 Dose: 30 u Documented by: Insulin Human Lispro (Humalog Kwikpen (Bkc)) 0 unit SC ACHS [facility] [place]; Protocol Last Admin: 01/11/20 10:56 Dose: 8 u Documented by: Melatonin (Melatonin) 3 mg PO QHS PRN PRN PRN Reason: INSOMNIA Methylprednisolone (Solu-Medrol) 40 mg IV Q8 [facility] [place] Last Admin: 01/11/20 05:23 Dose: 40 mg Documented by: Metoprolol Succinate (Toprol Xl (Beta Neo)) 50 mg PO 1730 [facility] Ondansetron HCl (Zofran) 4 mg IV Q8H PRN PRN PRN Reason: NAUSEA/VOMITING Sodium Chloride () 10 - 40 ml IV UD PRN PRN Reason: SALINE FLUSH Last Admin: 01/11/20 05:22 Dose: 10 ml Documented by: STROKE Vital Signs/Narrative: Vital Signs Temp Pulse Resp BP Pulse Ox 01/11/20 11:05 98.2 F 99 16 135/76 H 96 01/11/20 07:40 95 Medical Necessity - Tobacco Use Smoking Status: Former smoker Tobacco Use: Cigarettes Assessment/Plan All Active Problems (Last Reviewed 01/10/20 @ 13:29 by Suzi Garber, PHIL-C) Lactic acidosis (Acute) History of coronary artery disease (Acute) History of cataract surgery (Resolved) S/P complete hysterectomy (Resolved) H/O removal of cyst (Resolved) Pneumonia (Acute) Bronchitis (Acute) History of colonoscopy (Resolved) H/O urinary tract infection (Acute) Olecranon bursitis of right elbow (Acute) Knee pain (Acute) H/O: pneumonia (Acute) H/O bronchitis (Acute) H/O estrogen therapy (Acute) Rotator cuff impingement syndrome (Acute) COPD, group C, by GOLD 2017 classification (Acute) Coronary atherosclerosis (Acute) Insomnia, unspecified (Acute) Type 2 diabetes mellitus without complications (Acute) 1. 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 We will continue with her budesonide as well -There is no sign of infection to consider there her septic, repeat lactate is 2.7 down from 5, but will hold both her Lasix and any IV fluids at this time, her lactic acidosis is likely related to any hypoxia she has had over the last week 2. HTN/HLD -Pressures are stable currently -Continue with her Lipitor, and metoprolol -Can restart her Lasix tomorrow if her lactic acidosis improves 3. DM 2 -She follows with endocrinology as an outpatient -We will hold her glipizide, Actos and metformin but continue with her Lantus -Also place her on sliding scale insulin given the fact that she will be on steroids DVT: Lovenox Inpatient E&M: 64822 Subs Hosp L2
--- NOTE | 2020-01-11 15:17 | CASEMGMT ---
Call to [employer] and per rep, pt's order is for 2.5liters continuous home oxygen. Per rep, pt has as portable concentrator as well as the home concentrator. SStlizy SALAZAR CM
--- NOTE | 2020-01-11 15:37 | CASEMGMT ---
Social Work Palliative medicine screen completed with score of 5. SW met with pt and explained the palliative medicine program. Pt receptive to verbal and written information on the program but is not interested in a referral at this time. Pt made aware that she can contact palliative with questions once she returns home. LOPEZ Hua
[2020-01-11 17:01] LABS: Bedside Glucose 338 mg/dL (70-110)
[2020-01-11] MEDS: Metoprolol(XL)Succ 50 MG Tablet PO (17:19)
[2020-01-11] MEDS: Estradiol 0.5 MG Tablet PO (21:55)
[2020-01-11] MEDS: Atorvastatin Calcium 20 MG Tablet PO (21:56)
[2020-01-11 22:16] LABS: Bedside Glucose 308 mg/dL (70-110)
[2020-01-12] VITALS (16 sets, daily range): BP systolic 109–138; BP diastolic 44–66; PULSE 62–86; RESP 16–18; TEMP 36.3–37; O2SAT 94–99
[2020-01-12] MEDS: Ipratropium/Albuterol Sulfate 3 ML AMPUL.NEB INHALATION ×5 (01:45→19:01)
[2020-01-12] MEDS: 0.9% Saline Lock 10 ML Syringe IV ×2 (06:29→14:09)
[2020-01-12] MEDS: Insulin Lispro 100 UNIT/ML INSULN.PEN SC ×4 (06:32→21:14)
[2020-01-12 06:41] LABS: Bedside Glucose 270 mg/dL (70-110)
[2020-01-12 07:06] LABS: Anion Gap 3 (5-15); BUN 26 mg/dL (7-18); BUN/Creat Ratio 31.3 RATIO (10-20); Calcium,Total 9.2 mg/dL (8.5-10.1); Chloride 100 mmol/L (98-107); Creatinine, Serum 0.83 mg/dL (0.55-1.02); EST Glomerular Filtration Rate 73 mL/min (>60); Est Glom Filt Rate - Afr Amer 88 mL/min (>60); Estimated Creatinine Clearance 56.02 ml/min; Glucose 295 mg/dL (74-106); Potassium 4.8 mmol/L (3.5-5.1); Sodium Level 140 mmol/L (136-145)
[2020-01-12] MEDS: Aspirin E.C. 325 MG Tablet PO (09:25)
[2020-01-12] MEDS: Enoxaparin 40 MG/0.4 ML Syringe SC (09:25)
--- NOTE | 2020-01-12 10:01 | PCM.PN.HOSP ---
Patient Problems: Active and Suspected Problems (Last Reviewed 01/10/20 @ 13:29 by Suzi Garber NP-Francis) Lactic acidosis (Acute) History of coronary artery disease (Acute) Subjective: Breathing better and doing better. She says that she would feel more comfortable if he stays in the night, she still is short of breath when she walks to the bathroom. I asked if she has been turning up her oxygen and she said no I reminded her that she is supposed to increase her oxygen with activity. Vitals/I&O's: Vital Signs Temp Pulse Resp BP Pulse Ox 97.4 F L 62 18 131/66 H 95 01/12/20 08:31 01/12/20 08:31 01/12/20 08:31 01/12/20 08:31 01/12/20 08:31 Oxygen Flow Rate (L/min) 2 Oxygen Delivery Method Nasal Cannula Weight: 156 lb 4.924 oz Body Mass Index (BMI) 26.8 Intake and Output for Last 24 Hours 01/10/20 01/11/20 01/12/20 23:59 23:59 23:59 Intake Total 100 / 100 1115 / 1115 125 / 125 Output Total 300 / 300 225 / 225 Balance -200 / -200 890 / 890 125 / 125 General: Alert, Oriented x3, Cooperative, No apparent distress HEENT: Atraumatic, PERRLA, EOMI, Normocephalic Oral: Moist Mucosa Neck: Supple, No JVD Lungs: No rhonchi, No rales, Diminished, Wheezes - Mild, - - Very poor air movement Cardiovascular: Regular rate, Regular Rhythm, Normal S1, Normal S2, No murmurs Abdomen: Soft, Non Tender, Non-Distended, No Hepato-splenomegaly Extremities: No edema, Capillary Refill Less than 3 Seconds Skin: No rashes, No breakdown Neurological: Neuro grossly intact, Sensory exam intact to light touch and pain Psych/Mental Status: Normal Affect, Appropriate Microbiology Past 72 Hours 01/10/20 15:18 Mucosa - Nose Respiratory Panel (PCR) - Final 01/10/20 15:13 Mucosa - Nasopharyngeal Coronavirus COVID-19 PCR - Final Laboratory Results 01/11/20 10:55: POC Glucose 271 H 01/11/20 16:54: POC Glucose 338 H 01/11/20 21:54: POC Glucose 308 H 01/12/20 06:16: Sodium 140, Potassium 4.8, Chloride 100, Carbon Dioxide 37.0 H, Anion Gap 3 L, BUN 26 H, Creatinine 0.83, Estim Creat Clear Calc 56.02, Est GFR (MDRD) Af Amer 88, Est GFR (MDRD) Non-Af 73, BUN/Creatinine Ratio 31.3 H, Glucose 295 H, Calcium 9.2 01/12/20 06:32: POC Glucose 270 H Current Medications Acetaminophen (Tylenol) 650 mg PO Q6H PRN PRN PRN Reason: Pain Score 1-10/Temp > 100.7 F Albuterol/Ipratropium (Duoneb) 3 ml INHALATION Q4HWA.RT [facility] Last Admin: 01/12/20 06:42 Dose: 3 ml Documented by: Aspirin (Ecotrin) 325 mg PO DAILY@0800 [facility] Last Admin: 01/12/20 09:25 Dose: 325 mg Documented by: Atorvastatin Calcium (Lipitor) 20 mg PO QHS [facility] Last Admin: 01/11/20 21:56 Dose: 20 mg Documented by: Dextrose (D50w Syringe) 0 gm IV X1 PRN; Protocol PRN Reason: Hypoglycemia Enoxaparin Sodium (Lovenox) 40 mg SC DAILY [facility] Last Admin: 01/12/20 09:25 Dose: 40 mg Documented by: Estradiol (Estradiol) 0.5 mg PO QHS [facility] Last Admin: 01/11/20 21:55 Dose: 0.5 mg Documented by: Glucagon () 1 mg IM .X1 PRN PRN Reason: Hypoglycemia Sodium Chloride () 250 mls @ 15 mls/hr IV .[id number] PRN PRN Reason: Saline Flush Sodium Chloride () 250 mls @ 15 mls/hr IV .[id number] PRN PRN Reason: Additional IVPB Infusion Insulin Glargine (Lantus (Bkc)) 30 units SC DAILY [facility] Last Admin: 01/12/20 09:27 Dose: 30 u Documented by: Insulin Human Lispro (Humalog Kwikpen (Bkc)) 0 unit SC ACHS [facility]; Protocol Last Admin: 01/12/20 06:32 Dose: 6 u Documented by: Melatonin (Melatonin) 3 mg PO QHS PRN PRN PRN Reason: INSOMNIA Methylprednisolone (Solu-Medrol) 40 mg IV Q8 [facility] Last Admin: 01/12/20 06:29 Dose: 40 mg Documented by: Metoprolol Succinate (Toprol Xl (Beta Neo)) 50 mg PO 1730 [facility] Last Admin: 01/11/20 17:19 Dose: 50 mg Documented by: Ondansetron HCl (Zofran) 4 mg IV Q8H PRN PRN PRN Reason: NAUSEA/VOMITING Sodium Chloride () 10 - 40 ml IV UD PRN PRN Reason: SALINE FLUSH Last Admin: 01/12/20 06:29 Dose: 10 ml Documented by: STROKE Vital Signs/Narrative: Vital Signs Temp Pulse Resp BP Pulse Ox 01/12/20 08:31 97.4 F L 62 18 131/66 H 95 01/12/20 07:17 78 18 94 01/12/20 07:15 76 Medical Necessity - Tobacco Use Smoking Status: Former smoker Tobacco Use: Cigarettes Assessment/Plan All Active Problems (Last Reviewed 01/10/20 @ 13:29 by Suzi Garber, PHIL-C) Lactic acidosis (Acute) History of coronary artery disease (Acute) History of cataract surgery (Resolved) S/P complete hysterectomy (Resolved) H/O removal of cyst (Resolved) Pneumonia (Acute) Bronchitis (Acute) History of colonoscopy (Resolved) H/O urinary tract infection (Acute) Olecranon bursitis of right elbow (Acute) Knee pain (Acute) H/O: pneumonia (Acute) H/O bronchitis (Acute) H/O estrogen therapy (Acute) Rotator cuff impingement syndrome (Acute) COPD, group C, by GOLD 2017 classification (Acute) Coronary atherosclerosis (Acute) Insomnia, unspecified (Acute) Type 2 diabetes mellitus without complications (Acute) 1. Acute COPD exacerbation with acute respiratory insufficiency/lactic acidosis -She is struggling to breathe and her scientific software engineer office on day of admission and had to have her oxygen increased to 5 L -She is received breathing treatments in the ER I believe and at the office -we will continue with duo nebs, as well as Solu-Medrol. We will continue with her budesonide as well -There is no sign of infection to consider there her septic, repeat lactate is 2.7 down from 5, but will hold both her Lasix and any IV fluids at this time, her lactic acidosis is likely related to any hypoxia she has had over the last week 2. HTN/HLD -Pressures are stable currently -Continue with her Lipitor, and metoprolol -Can restart her Lasix tomorrow if her lactic acidosis improves 3. DM 2 -She follows with endocrinology as an outpatient -We will hold her glipizide, Actos and metformin but continue with her Lantus -Also place her on sliding scale insulin given the fact that she will be on steroids DVT: Lovenox Inpatient E&M: 23379 Subs Hosp L2
--- NOTE | 2020-01-12 10:47 | NURSING ---
called agusto for update
[2020-01-12 11:55] LABS: Bedside Glucose 358 mg/dL (70-110)
[2020-01-12] MEDS: Polyethylene Glycol 3350 17 GM PACKET PO ×2 (16:09→21:14)
[2020-01-12 16:20] LABS: Bedside Glucose 354 mg/dL (70-110)
[2020-01-12] MEDS: Metoprolol(XL)Succ 50 MG Tablet PO (17:51)
[2020-01-12] MEDS: Budesonide Respules 0.5 MG/2 ML AMPUL.NEB. INHALATION (19:01)
[2020-01-12] MEDS: Atorvastatin Calcium 20 MG Tablet PO (21:14)
[2020-01-12] MEDS: Estradiol 0.5 MG Tablet PO (21:14)
[2020-01-12 22:05] LABS: Bedside Glucose 348 mg/dL (70-110)
[2020-01-13] VITALS (8 sets, daily range): BP systolic 121–140; BP diastolic 47–64; PULSE 62–78; RESP 17–22; TEMP 36.4–36.8; O2SAT 93–100
[2020-01-13] MEDS: 0.9% Saline Lock 10 ML Syringe IV (05:19)
[2020-01-13] MEDS: Insulin Lispro 100 UNIT/ML INSULN.PEN SC ×2 (06:42→11:36)
[2020-01-13 06:50] LABS: Bedside Glucose 265 mg/dL (70-110)
[2020-01-13] MEDS: Ipratropium/Albuterol Sulfate 3 ML AMPUL.NEB INHALATION ×2 (07:32→11:12)
[2020-01-13] MEDS: Budesonide Respules 0.5 MG/2 ML AMPUL.NEB. INHALATION (07:32)
[2020-01-13] MEDS: Aspirin E.C. 325 MG Tablet PO (08:53)
[2020-01-13] MEDS: Enoxaparin 40 MG/0.4 ML Syringe SC (08:54)
[2020-01-13] MEDS: Polyethylene Glycol 3350 17 GM PACKET PO (08:58)
--- NOTE | 2020-01-13 10:43 | DCINST_ITS ---
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) Lactic acidosis (Acute) Acute and chronic respiratory failure with hypoxia (Chronic) History of coronary artery disease (Acute) You will use the following diet at home:: Regular Your food should be the consistency of: Regular Your liquids should be the consistency of: Regular/Thin Discharge Activity: Return to Normal Activity Call your doctor if you observe: Fever of 101 or Higher, Shortness of breath, Dizziness, Fainting spells, Swelling in the ankles, Chest pain, Increased palpitations (irregular heartbeat) Allergies/Adverse Reactions: Allergies niacin Allergy (Verified 01/10/20 14:16) hives, rash Medications to take at Discharge aspirin 325 mg tablet,delayed release 325 mg PO DAILY 09/14/19 atorvastatin 20 mg tablet 20 mg PO QHS 09/14/19 estradiol 0.5 mg tablet 0.5 mg PO QHS 09/14/19 furosemide 40 mg tablet 40 mg PO DAILY 09/14/19 ipratropium 0.5 mg-albuterol 3 mg (2.5 mg base)/3 mL nebulization soln 3 ml INHALATION Q6H PRN 09/14/19 melatonin 10 mg tablet,extended release 10 mg PO QHS tab 09/14/19 metoprolol succinate 50 mg tablet,extended release 24 hr 50 mg PO 1730 09/14/19 pioglitazone 15 mg tablet 15 mg PO DAILY 09/14/19 Budesonide [Pulmicort] 0.25 mg IH BID 01/10/20 Glipizide/Metformin HCl [Glipizide-Metformin 2.5-500 mg] 2 tab PO BID 01/10/20 Insulin Glargine [Lantus SoloStar Pen] 30 unit SQ DAILY 01/10/20 Prednisone [Deltasone] 40 mg PO BID #23 tab 01/13/20 The following prescriptions were given: Prednisone [Deltasone] 40 mg PO BID #23 tab Prescription Printed Primary Care Physician: Ron Garland MD [Primary Care Provider] - Please follow up with your Primary Care Physician in: 3-5 days Test Results: Test results from this visit will be discussed in further detail at your follow- up appointment, if applicable. Please Follow Up With: Arturo Cohen MD When: 2 weeks
--- NOTE | 2020-01-13 10:45 | PCM.DC.SUM ---
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 Mild degree of increased markings at the lung bases suggestive of linear atelectasis and/or scarring. CTA Chest: IMPRESSION: No evidence of pulmonary embolus. No evidence of thoracic aortic aneurysm or dissection. Mild emphysema. No pulmonary infiltrates or pleural effusions. Coronary artery disease. Enlarged, fatty liver. Consults: None Operations: None Procedures: None Summary of Care Provided: Per HPI: The patient is a 69 year old F with a PMH as below who presents with shortness of breath that started about a week ago. She does have COPD and she was at the narcotics and vice detective office today for an acute visit and her oxygen had to be titrated up from her baseline of 3 L to 5 L while at rest. She was transferred to the ER for evaluation and to decide on where to admit her. CTA of the chest was unremarkable, preliminary respiratory panel is also unremarkable and a COVID test is pending though she has no known exposure at this time. She states that she has not really increased her oxygen even with ambulation because she does not ambulate all that much. She denies any chest pain, but states that she has had lightheadedness. She also denies any fevers, chills or alterations in her sense of smell and taste. Chest x-ray demonstrates hyperinflation and signs of COPD. Hospital Course: 1. Acute COPD exacerbation with acute respiratory insufficiency/lactic [id number] female with severe COPD presents to her narcotics and vice detective office with an exacerbation. She had increase her oxygen from her baseline of 2-1/2 L to 5 L in the office. She had a CTA on admission which did not show PE therefore she was started on Solu-Medrol, duo nebs, and continued on her budesonide as well. She has steadily improved though her lungs continue to be tight there was some more wheezing today indicating that her lungs were opening up. She was feeling less short of breath and was saturating very well on her home 2-1/2 L. She did feel better on ambulation if her oxygen was increased therefore she did have a walking pulse ox today, which did confirm that she needed 5 L with ambulation. Also she has worked with PT and does need a wheeled walker to assist with her ambulation. She will be discharged on a prolonged prednisone taper and will need to follow-up with her narcotics and vice detective in 2 weeks. As for her lactic acidosis, this resolved on its own without IV fluids. This was felt to be due to prolonged hypoxia at home prior to coming into the hospital. I did discuss the discharge plan with her and she expressed understanding of the risks and benefits of going home today. 2. Her other medical diagnoses were evaluated and her home medications were continued where appropriate Patient Problems: Active and Suspected Problems (Last Reviewed 01/10/20 @ 13:29 by Suzi Garber NP-C) Lactic acidosis (Acute) History of coronary artery disease (Acute) - Physical Exam Vitals/I&O's: Vital Signs Temp Pulse Resp BP Pulse Ox 98.2 F 68 20 H 140/64 H 93 01/13/20 08:49 01/13/20 08:49 01/13/20 08:49 01/13/20 08:49 01/13/20 08:49 Oxygen Flow Rate (L/min) 2.5 Oxygen Delivery Method Room Air Weight: 156 lb 4.924 oz Body Mass Index (BMI) 26.8 Intake and Output for Last 24 Hours 01/11/20 01/12/20 01/13/20 23:59 23:59 23:59 Intake Total 1115 / 1115 1005 / 1005 Output Total 225 / 225 Balance 890 / 890 1005 / 1005 General: Alert, Oriented x3, Cooperative, No apparent distress HEENT: Atraumatic, PERRLA, EOMI, Normocephalic Oral: Moist Mucosa Neck: Supple, No JVD Lungs: No rhonchi, No rales, Diminished, Wheezes - Moderate, - - poor air movement Cardiovascular: Regular rate, Regular Rhythm, Normal S1, Normal S2, No murmurs Abdomen: Soft, Non Tender, Non-Distended, No Hepato-splenomegaly Extremities: No edema, Capillary Refill Less than 3 Seconds Skin: No rashes, No breakdown Neurological: Neuro grossly intact, Sensory exam intact to light touch and pain Psych/Mental Status: Normal Affect, Appropriate Microbiology Past 72 Hours 01/10/20 15:35 Blood Culture (Wb) - Anticubital Left Blood Culture - Preliminary No growth in 48 hours. 01/10/20 15:15 Blood Culture (Wb) - Anticubital Right Blood Culture - Preliminary No growth in 48 hours. 01/10/20 15:18 Mucosa - Nose Respiratory Panel (PCR) - Final 01/10/20 15:13 Mucosa - Nasopharyngeal Coronavirus COVID-19 PCR - Final Laboratory Results 01/12/20 11:39: POC Glucose 358 H 01/12/20 16:08: POC Glucose 354 H 01/12/20 21:07: POC Glucose 348 H 01/13/20 06:41: POC Glucose 265 H Current Medications Acetaminophen (Tylenol) 650 mg PO Q6H PRN PRN PRN Reason: Pain Score 1-10/Temp > 100.7 F Albuterol/Ipratropium (Duoneb) 3 ml INHALATION Q4HWA.RT [facility] Last Admin: 01/13/20 07:32 Dose: 3 ml Documented by: Aspirin (Ecotrin) 325 mg PO DAILY@0800 [facility] Last Admin: 01/13/20 08:53 Dose: 325 mg Documented by: Atorvastatin Calcium (Lipitor) 20 mg PO QHS [facility] Last Admin: 01/12/20 21:14 Dose: 20 mg Documented by: Budesonide (Pulmicort Aerosol) 0.5 mg INHALATION BID.RT [facility] Last Admin: 01/13/20 07:32 Dose: 0.5 mg Documented by: Dextrose (D50w Syringe) 0 gm IV X1 PRN; Protocol PRN Reason: Hypoglycemia Enoxaparin Sodium (Lovenox) 40 mg SC DAILY [facility] Last Admin: 01/13/20 08:54 Dose: 40 mg Documented by: Estradiol (Estradiol) 0.5 mg PO QHS [facility] Last Admin: 01/12/20 21:14 Dose: 0.5 mg Documented by: Glucagon () 1 mg IM .X1 PRN PRN Reason: Hypoglycemia Sodium Chloride () 250 mls @ 15 mls/hr IV .[id number] PRN PRN Reason: Saline Flush Sodium Chloride () 250 mls @ 15 mls/hr IV .[id number] PRN PRN Reason: Additional IVPB Infusion Insulin Glargine (Lantus ([facility])) 30 units SC DAILY [facility] Last Admin: 01/13/20 08:53 Dose: 30 u Documented by: Insulin Human Lispro (Humalog Kwikpen ([facility])) 0 unit SC ACHS [facility]; Protocol Last Admin: 01/13/20 06:42 Dose: 6 u Documented by: Melatonin (Melatonin) 3 mg PO QHS PRN PRN PRN Reason: INSOMNIA Methylprednisolone (Solu-Medrol) 40 mg IV Q8 [facility] Last Admin: 01/13/20 05:19 Dose: 40 mg Documented by: Metoprolol Succinate (Toprol Xl (Beta Neo)) 50 mg PO 1730 [facility] Last Admin: 01/12/20 17:51 Dose: 50 mg Documented by: Ondansetron HCl (Zofran) 4 mg IV Q8H PRN PRN PRN Reason: NAUSEA/VOMITING Polyethylene Glycol (Miralax) 17 gm PO BID [facility] Last Admin: 01/13/20 08:58 Dose: 17 gm Documented by: Sodium Chloride () 10 - 40 ml IV UD PRN PRN Reason: SALINE FLUSH Last Admin: 01/13/20 05:19 Dose: 10 ml Documented by: Discharge Activity: Return to Normal Activity Call your doctor if you observe: Fever of 101 or Higher, Shortness of breath, Dizziness, Fainting spells, Swelling in the ankles, Chest pain, Increased palpitations (irregular heartbeat) Home Medications: Medications to take at Discharge aspirin 325 mg tablet,delayed release 325 mg PO DAILY 09/14/19 atorvastatin 20 mg tablet 20 mg PO QHS 09/14/19 estradiol 0.5 mg tablet 0.5 mg PO QHS 09/14/19 furosemide 40 mg tablet 40 mg PO DAILY 09/14/19 ipratropium 0.5 mg-albuterol 3 mg (2.5 mg base)/3 mL nebulization soln 3 ml INHALATION Q6H PRN 09/14/19 melatonin 10 mg tablet,extended release 10 mg PO QHS tab 09/14/19 metoprolol succinate 50 mg tablet,extended release 24 hr 50 mg PO 1730 09/14/19 pioglitazone 15 mg tablet 15 mg PO DAILY 09/14/19 Budesonide [Pulmicort] 0.25 mg IH BID 01/10/20 Glipizide/Metformin HCl [Glipizide-Metformin 2.5-500 mg] 2 tab PO BID 01/10/20 Insulin Glargine [Lantus SoloStar Pen] 30 unit SQ DAILY 01/10/20 Prednisone [Deltasone] 40 mg PO BID #23 tab 01/13/20 Following Prescrptions Were Given to Patient: Prednisone [Deltasone] 40 mg PO BID #23 tab Prescription Printed Primary Care Physician: Ron Garland MD [Primary Care Provider] - Please follow up with your Primary Care Physician in: 3-5 days Please Follow Up With: Arturo Cohen MD When: 2 weeks Disposition: Home Minutes spent on discharge:: 35 Patient Condition:: Stable Medical Necessity - Tobacco Use Smoking Status: Former smoker Tobacco Use: Cigarettes Meaningful Use Info Meaningful Use Diagnoses (Choose all that apply): None applicable Inpatient E&M: 40922 Disch Hosp
--- NOTE | 2020-01-13 10:52 | CASEMGMT ---
Addendum entered by Margo Mistry 01/13/20 11:24: This RN CM also discussed therapy with pt at this time and pt denies need for any further therapy at discharge. Pt states she lives with and has family 'all around to help.' Per Meliza SALAZAR, pt's sat is fine with ambulation on her 5 liters. Call back from German at [facility] and he states he is getting order faxed from pulmonary for 5 liters with ambulation and that he will be delivering the WW to pt prior to discharge. Meliza SALAZAR aware, voices understanding. Collin SALAZAR CM Original Note: This RN CM to room and pt states that she had testing done with [facility] in September and she was increased to 5 liters with ambulation at that time. Call back to [facility] and they state they never received that testing/order so they state they will call the pulmonary office in regards to same. Rep states that they normally ship WW to pt but they can deliver to pt today, if needed. Advised rep that pt would like to have the WW to go home and order faxed at this time. Pt to be ambulated on 5liters to make sure that pt does not need more than that at that time. Collin SALAZAR CM
--- NOTE | 2020-01-13 11:19 | PHA.DC.MC ---
Pharmacy Service has performed discharge medication reconciliation and counseling for this patient. 1. PREDNISONE 20MG TABLET WITH FOOD - TAKE 2 TABLETS PO BID X 3 DAYS, THEN 2 TABLETS PO DAILY X 3 DAYS, THEN 1 TABLET PO DAILY X 3 DAYS, THEN 1/2 TABLET PO DAILY X 4 DAYS The patient's discharge medication list was reviewed for discrepancies and discrepancies were resolved. Home Medications aspirin 325 mg tablet,delayed release 325 mg PO DAILY 09/14/19 atorvastatin 20 mg tablet 20 mg PO QHS 09/14/19 estradiol 0.5 mg tablet 0.5 mg PO QHS 09/14/19 furosemide 40 mg tablet 40 mg PO DAILY 09/14/19 ipratropium 0.5 mg-albuterol 3 mg (2.5 mg base)/3 mL nebulization soln 3 ml INHALATION Q6H PRN 09/14/19 melatonin 10 mg tablet,extended release 10 mg PO QHS tab 09/14/19 metoprolol succinate 50 mg tablet,extended release 24 hr 50 mg PO 1730 09/14/19 pioglitazone 15 mg tablet 15 mg PO DAILY 09/14/19 Budesonide [Pulmicort] 0.25 mg IH BID 01/10/20 Glipizide/Metformin HCl [Glipizide-Metformin 2.5-500 mg] 2 tab PO BID 01/10/20 Insulin Glargine [Lantus SoloStar Pen] 30 unit SQ DAILY 01/10/20 Prednisone [Deltasone] 40 mg PO BID #23 tab 01/13/20 The patient was counseled on the following discharge medications and changes in medications for homegoing were reviewed. The Reason for Use, instructions for use, and potential side effects were reviewed for all new medications. The patient's questions regarding all of their medications were answered. The patient was able to verbally demonstrate an understanding of their discharge medications.
[2020-01-13 11:40] LABS: Bedside Glucose 359 mg/dL (70-110)
--- NOTE | 2020-01-13 13:30 | NURSING ---
discharge instructions reviewed with patient. pt voices understanding, declines wanting this RN to call and review with family. Pt called family and they will be coming to pick patient up.
--- NOTE | 2020-01-16 14:30 | CASEMGMT ---
MARIE GROVES Discharge Follow-up Phone Call: FRANCO: 11 Strata: 3 Call Date: 01/16/2020 Discharge Date: 01/13/2020 Time of Call: 1430 Duration: 1 min Admitting Diagnosis: COPD exacerbation MARIE GROVES attempted to complete follow-up phone call after recent hospitalization. No answer, voice message left with return contact information. Follow-up appts scheduled prior to discharge.
== END 2020-01-13 14:27 | disposition home or self-care (01) | DRG 191 ==
LOC: ED 17:12 → PCU 19:12
PROVIDERS: Admitting Provider Family Medicine; Emergency Provider Emergency Medicine; PCP Family Medicine; Visit Provider Family Medicine
DX: J44.1 Chronic obstructive pulmonary disease with (acute) exacerbation (principal); J96.11 Chronic respiratory failure with hypoxia; E87.2 Acidosis; E11.9 Type 2 diabetes mellitus without complications; I25.10 Atherosclerotic heart disease of native coronary artery without angina pectoris; I10 Essential (primary) hypertension; E78.5 Hyperlipidemia, unspecified; G47.00 Insomnia, unspecified; E66.9 Obesity, unspecified; Z99.81 Dependence on supplemental oxygen; Z79.82 Long term (current) use of aspirin; Z79.4 Long term (current) use of insulin; Z79.899 Other long term (current) drug therapy; Z87.01 Personal history of pneumonia (recurrent); Z87.891 Personal history of nicotine dependence
CPT/HCPCS: 36415; 71045; 71275; 80048; 80053; 82962; 83605; 85025; 87040; 87633; 87635; 93005; 94640; 97162; 97166; 97530; 99251; 99285; G2023; Q9967; A4216; G0463; U0004

== ENCOUNTER → 2021-03-29 | Outpatient (CLI) | payer MEDICARE, SELFPAY ==
[2020-04-02 11:02] VITALS: BMI 26.2
== END | disposition home or self-care (01) ==
LOC: LABSPEC 15:27
PROVIDERS: PCP Family Medicine; Referring Provider Family Medicine; Visit Provider Family Medicine
DX: Z20.822 Contact with and (suspected) exposure to COVID-19 (principal)
CPT/HCPCS: 87635; U0005; U0003